=== PATIENT | male | born 1975 | race Caucasian/White ===

== ENCOUNTER 2016-07-30 14:49 | Emergency (ER) | payer OTHER ==
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
[~2016-07-30 14:49] MED LIST: BACTRIM DS TABL1 TA1 PO; KEFLEX500 MG PO; LORTAB 7.5-5001 TAB PO; ORUDIS75 M1 PO
== END 2016-07-30 16:47 | disposition home or self-care (01) ==
LOC: SED 14:49
DX: S86.912A Strain of unspecified muscle(s) and tendon(s) at lower leg level, left leg, initial encounter (principal); V49.00XA Driver injured in collision with unspecified motor vehicles in nontraffic accident, initial encounter; Y92.410 Unspecified street and highway as the place of occurrence of the external cause
CPT/HCPCS: 29530; 73562; 99284